=== PATIENT | female | born 1960 | race Caucasian/White ===

== ENCOUNTER 2017-08-29 08:10 | Day surgery (SDC) | payer OTHER ==
[~2017-08-29 08:10] MED LIST: CYCLOPENTOLATE 0.2%/PHENYLEPHRINE 1% OPH SOLN 2 ML OS PRN; KETOROLAC TROMETHAMINE 0.45% 4 DROP/0.4 ML DROPERETTE OS PRN; LIDOCAINE 1%/EPINEPHRINE INJ 20 ML VIAL ONE; POVIDONE-IODINE 5% OPH PREP SOLN 30 ML ONE; TETRACAINE HCL 0.5% OPH SOLN 2 ML ONE; TOBRAMYCIN SULFATE/DEXAMETH OPH OINTMENT 3.5 GM ONE; TROPICAMIDE 1% OPH SOLN 3 ML OS PRN
[2017-08-29] MEDS: BESIFLOXACIN HCL 0.6% OPH SUSP 5 ML BOTTLE OS PRN ×3 (08:24→09:10)
[2017-08-29] MEDS: TETRACAINE HCL 0.5% OPH SOLN 0.6 ML DROPERETTE OS PRN ×3 (08:25→08:55)
[2017-08-29] MEDS ORDERED: MIDAZOLAM 2 MG/2 ML INJ ONE (08:42)
[2017-08-29] MEDS ORDERED: FENTANYL CITRATE INJ/PF 100 MCG/2 ML AMPUL ONE (08:56)
== END 2017-08-29 10:00 | disposition home or self-care (01) ==
LOC: SC 08:10
PROVIDERS: ATTEND Ophthalmology
PROC: 08BTXZX Excision of Left Conjunctiva, External Approach, Diagnostic (ICD-10-PCS; principal; 2017-08-29 09:00)
DX: H11.442 Conjunctival cysts, left eye (principal); I10 Essential (primary) hypertension; Z88.2 Allergy status to sulfonamides; Z88.0 Allergy status to penicillin
CPT/HCPCS: 88305 ×2; 68110; J2250; J3490 ×3; J3010; 140